=== PATIENT | female | born 1960 | race Caucasian/White ===

== ENCOUNTER 2024-09-27 17:11 | Emergency (ER) | payer MEDICARE, BC ==
[~2024-09-27] VITALS: Ht 162.6 cm; Wt 109.8 kg
--- NOTE | 2024-09-27 17:31 | Physician Documentation ---
History of Present Illness ~ Chief Complaint: Head Pain Stated Complaint: HIT HEAD Time Seen by MD: 17:27 OK to notify your PCP?: Yes Source: patient Mode of Arrival: POV Exam Limitations: no limitations HPI 64-year-old female presents with right-sided head pain after she has been 2 over trying to pick something up and accidentally hit her head on the quartz countertop. She is taking prasugrel. Denies any loss of consciousness, vision changes or nausea and vomiting. She has some localized tenderness to her right scalp. Medication Reconciliation Allergies: Coded Allergies: No Known Allergies (Unverified , 09/27/24) Review of Systems All Other Systems at this time: Reviewed and Negative Physical Exam Vital Signs: RN Vital Signs have been reviewed: Yes, Temperature: 97.6, Source: Temporal, Heart Rate: 89, Respiratory Rate: 15, BP: 159/82, Pulse Oximetry: 97, Weight: 109.750 Pulse Oximetry Reflects: adequate oxygenation Physical Exam General: Alert, no distress. HEENT: No injection, moist mucous membranes. Psychiatric: Normal mood and affect. Skin: Normal color, warm and dry. Progress Results/Orders Results/Orders Orders - RAVIN ROSAS UNITIZER Ct Head (09/27/24 18:00) Completed Orders - RAVIN ROSAS UNITIZ[facility] Ct Head (09/27/24 18:00) Vital Signs 09/27/24 17:12 Temp 97.6 Pulse 89 Resp 15 B/P (MAP) 159/82 Pulse Ox 97 Medical Decision Making Findings Patient's CT did not show any signs of intracranial abnormality. This test was mostly ordered based on her head injury and taking blood thinners. Mostly asymptomatic Differential Dx:Considerations: Include: Closed head injury, Cervical spine injury, Skull facture, Fracture, Abrasion, Contusion, Foreign body, Laceration, Intoxication-alcohol, Intoxication-other drug, Substance abuse disorder, Per sonality disorder, Non-accidental trauma, Other Departure Disposition: 01 HOME / SELF CARE / HOMELESS Impression: Primary Impression: Superficial bruising Condition: Stable Discharge Instructions: Head Injuries, Adult Additional Instructions: For CT showed no signs of acute intracranial abnormalities. I please feel free to return if you have any worsening symptoms. Referrals: NO PRIMARY CARE PROVIDER (PCP) Education Educated: Patient Educated regarding: diagnosis Additional Comment Medical Screen Exam This patient recieved a medical screening examination. After reviewing the individual's medical complaints with presenting symptoms and performing an appropriate physical examination, it was determined that no immediate life- threatening emergency medical condition is present. This individual is also not a women having contractions. Signature Scribe Signature: t Attestation: Scribed for Ravin Rosas Np by Ravin Howe NP . 09/27/24 18:29 TRIXIE CARDENAS Sep 27, 2024 17:31 RAVIN ROSAS NP Sep 27, 2024 18:30
[2024-09-27 18:49] VITALS: BP 155/80; PULSE 86; RESP 16; TEMP 98.6; O2SAT 99
--- NOTE | 2024-09-27 19:25 | RADIOLOGY REPORT ---
Procedure: [facility] Study Date and Requested Time: 09/27/2024 06:15 PM History: head injury w thinner Comparison: None Dose: CTDI: 59.38 mGy DLP: 1060.79 mGycm Technique: Multiplanar images obtained through the brain without intravenous contrast. Findings: Diffuse brain atrophy. Mild chronic small vessel ischemic changes. No hemorrhages, masses, mass effect, midline shift, herniation or cytotoxic edema following a large v ascular territory. No intra-axial or extra-axial fluid collections. No evidence of hydrocephalus. The basal cisterns are patent. The pituitary gland, sella and parasellar regions are unremarkable. The cerebellar tonsils are in nor mal position. The cerebellum is unremarkable. The orbits and globes are unremarkable. The paranasal sinuses and mastoids are clear. There are no wo rrisome calvarial lesions. Impression: No evidence of acute intracranial abnormality.
== END 2024-09-27 18:50 | disposition home or self-care (01) ==
LOC: ER 17:12
DX: S00.93XA Contusion of unspecified part of head, initial encounter (principal); W22.8XXA Striking against or struck by other objects, initial encounter; Y93.89 Activity, other specified; Y92.89 Other specified places as the place of occurrence of the external cause; Y99.8 Other external cause status
CPT/HCPCS: 70450; 99284

== ENCOUNTER 2024-11-25 11:05 | Outpatient (CLI) | payer MEDICARE, BC ==
[2024-11-25 12:02] LABS: MEAN PLATELET VOLUME 9.0 FL (7.4-10.4); RED CELL DISTRIBUTION WIDTH 13.8 % (11.5-14.5)
[2024-11-25 12:23] LABS: CHOL/HDL RATIO 2.2 (0.00-4.99); CREATININE 1.40 MG/DL (0.40-0.90); LDL CHOLESTEROL 53 MG/DL (50-100); TOTAL CARBON DIOXIDE 29.3 MMOL/L (24-32); eGFR 38 ML/MIN
== END 2024-11-25 23:59 | disposition home or self-care (01) ==
LOC: RAD 11:05
PROVIDERS: ATTEND Hospitalist
DX: I25.10 Atherosclerotic heart disease of native coronary artery without angina pectoris (principal); R53.83 Other fatigue; R06.00 Dyspnea, unspecified
CPT/HCPCS: 36415; 80053; 80061; 83036; 84439; 84443; 85025; 86140

== ENCOUNTER 2024-11-28 05:50 | Day surgery (SDC) | payer MEDICARE, BC ==
[2024-11-25 12:03] LABS: MEAN PLATELET VOLUME 8.9 FL (7.4-10.4); RED CELL DISTRIBUTION WIDTH 13.5 % (11.5-14.5)
[2024-11-25 12:09] LABS: CREATININE 1.40 MG/DL (0.40-0.90); TOTAL CARBON DIOXIDE 29.5 MMOL/L (24-32); eGFR 38 ML/MIN
[2024-11-25 12:11] LABS: APTT 28 SECONDS (22-32); INR 1.0 INR
[~2024-11-28] VITALS: Ht 162.6 cm; Wt 124.9 kg
[2024-11-28] VITALS (15 sets, daily range): BP systolic 108–127; BP diastolic 64–77; PULSE 59–76; RESP 12–20; TEMP 98.4; O2SAT 92–100
--- NOTE | 2024-11-28 06:27 | ELECTROCARDIOGRAPH REPORT ---
[facility] Test Date: 2024-11-28 Test Time: 06:25:42 Pat Name: ASHELY SAENZ Department: PSYCHIATRIC-SSTAY O Room: Gender: F [employer] Operator: ZACH : 1960 Requested By: BRANDY ANGELES Order Number: [id number] Reading MD: Dr. Richa Morin Measurements Intervals [place] Rate: 73 P: 27 [place]: 143 QRS: 12 QRSD: 105 T: 21 QT: 396 QTc: 437 Interpretive Statements Sinus rhythm Electronically Signed On 11-28-2024 6:54:[address] Richa Morin Please click the below link to view image of tracing.
[2024-11-28] MEDS ORDERED: heparin 1,000unit/ml 10ml vial 10 ML ONE (06:29)
[2024-11-28] MEDS ORDERED: midazolam 1 mg/ML 2ml injection ONE (06:29)
[2024-11-28] MEDS ORDERED: LIDOcaine 1% (10mg/ml) 2ml vial ONE (06:29)
[2024-11-28] MEDS ORDERED: verapamil 2.5 mg/ml inj IV ONE (06:29)
[2024-11-28] MEDS ORDERED: iohexol 350 MG/ML 50ML vial IV ONE (06:29)
[2024-11-28] MEDS ORDERED: fentaNYL/PF 50MCG/1 ML 2ML syringe ONE (06:29)
[2024-11-28] MEDS ORDERED: nitroGLYCERIN 500mcg/5mL D5W 5 ML IV ONE (06:30)
[2024-11-28] MEDS ORDERED: BUPR-480 PO (06:32)
[2024-11-28] MEDS ORDERED: EZET10TA48 PO (06:32)
[2024-11-28] MEDS ORDERED: LOSA1TAB41 PO (06:32)
[2024-11-28] MEDS ORDERED: PRAS10TA10 PO (06:32)
[2024-11-28] MEDS ORDERED: DULO40CA2 PO (06:32)
[2024-11-28] MEDS ORDERED: ATOR40TA72 PO (06:32)
[2024-11-28] MEDS ORDERED: CARV12.549 PO (06:32)
[2024-11-28] MEDS: sodium bicarbonate 1meq/ml syr 150 ML in dextrose 5%-water 1,000 ML IV ONE (06:45)
[2024-11-28 10:09] LABS: ISTAT HGB ART 11.6 g/dl (12.0-16.0); ISTAT Hct ART 34 %PCV (35-45); ISTAT O2 SATURATION ARTERIAL 91 % (95-98); ISTAT SOURCE ART
[2024-11-28 10:58] LABS: ISTAT HGB MIX 11.2 g/dl (12.0-16.0); ISTAT Hct MIX 33 %PCV (35-45); ISTAT O2 SATURATION MIX VENOUS 65 % (60-80); ISTAT SOURCE VEN
--- NOTE | 2024-11-29 03:42 | CARDIOLOGY REPORT ---
DATE OF SERVICE: 11/28/2024 DICTATING PHYSICIAN: ISRAEL Garrison MD CARDIAC CATHETERIZATION GENDER: Female. AGE: 64. HEIGHT: 163 cm. WEIGHT: 124.7 kilos. BODY SURFACE AREA: 2.24 meters square. PRIMARY PHYSICIAN: [facility] SOFTWARE APPLICATIONS SPECIALIST: ISRAEL Garrison MD INDICATIONS: The patient is a 64-year-old postmenopausal female with hypertension, hyperlipidemia, prediabetes, history of myocardial infarction with exertional fatigue, shortness of breath, underwent a myocardial perfusion scan, found to have a distal anterior defect. After discussion of risks, benefits, alternative options, the patient preferred to proceed with coronary angiography. Risks and benefits alternative options discussed and informed consent was obtained. The patient's history: She has a history dated back to 2019, showing anterior myocardial infarction. 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 PROCEDURE TECHNIQUE: The patient underwent left heart cath via right radial approach and right heart cath via right antecubital approach. Postprocedure right radial access sheath hemostasis achieved with right radial band. The patient tolerated the procedure well. COMPLICATIONS: None. PROCEDURES DONE: * Ultrasound-guided right radial artery visualization and access. * Right heart catheterization. * Left heart catheterization. * Coronary angiography. * Conscious sedation time of 30 minutes. FINDINGS: HEMODYNAMICS: Aortic systolic 95/diastolic 52, mean 72 mmHg. LVEDP of 12 mmHg, with no significant gradient across the aortic valve. Atrial mean 4 mmHg. RV pressure is 20/5 mmHg. PA pressure 15/1 mmHg. Aortic oxygen saturation 91%. Pulmonary artery oxygen saturation 65%. Cardiac output thermodilution of 5.67 L/minute. Cardiac index 2.53 L/min/m2. LV overall left ventricular systolic function normal. Overall left ventricular ejection fraction was 65%. CORONARY CINEANGIOGRAPHY: Left main coronary artery engaged with JL3.5 catheter. minimal irregularities. LAD is a medium caliber vessel arising at the bifurcation of the left main and courses through the anterior intraventricular groove and ends by wrapping around the apex. Stent in the middle LAD is widely patent. Digital LAD becomes a very small vessel. Diagonal in the distal portion is bigger than the LAD and 2.25 mm caliber and diameter. Circumflex artery is a large caliber codominant vessel arising at the bifurcation of the left main coronary artery and courses through the left AV groove. OM1 is very small. OM2 is 2.5-mm caliber and divides into two divisions with minimal luminal irregularities. OM3 is 2-mm caliber with mid luminal irregularities and after that continues as PDA with 2-mm caliber vessel with mid luminal irregularities. Beyond PDA, there is also a small posterolateral branch. Right coronary artery is a medium caliber vessel arising at the right aortic sinus and courses through the right AV groove and continuous as a posterolateral branch with minimal luminal irregularities. IMPRESSION: A 64-year-old with an LV ejection fraction of 65%. LVEDP of 11 mmHg, with no gradient across the aortic valve. Pulmonary capillary wedge pressure of 10 mmHg. PA systolic measure of 15 mmHg. Left main normal. Mid LAD is widely patent. Codominant circ with mid luminal irregularities. RECOMMENDATION: Recommend continued aggressive coronary risk factor modification, namely low fat, low cholesterol diet, maintaining ideal body weight, keeping LDL less than 55 mg%, regular exercise. ISRAEL Garrison MD TID: [id number] RECEIPT: [id number] ANA/CHICA/JENNIFER [facility]: [facility]
== END 2024-11-28 12:25 | disposition home or self-care (01) ==
LOC: SSTAY O 05:50
PROVIDERS: ATTEND Internal Medicine Cardiovascular Disease
DX: I25.10 Atherosclerotic heart disease of native coronary artery without angina pectoris (principal); E78.5 Hyperlipidemia, unspecified; I10 Essential (primary) hypertension; I25.2 Old myocardial infarction; Z78.0 Asymptomatic menopausal state; Z79.01 Long term (current) use of anticoagulants; Z98.890 Other specified postprocedural states; Z95.5 Presence of coronary angioplasty implant and graft; Z79.899 Other long term (current) drug therapy
CPT/HCPCS: 36415; 80048; 82803; 85014; 85025; 85610; 85730; 93005; 93460; 99152; 99153; A4615; A6258; A6402; C1725; C1751; C1894; J1644; J2003; J2250; J3010; J3490; J7030; J7070; Q0163; Q9967; Z7610; 76937; 80053; 80061; 83036; 84439; 84443; 86140